=== PATIENT | male | born 1940 | race Caucasian/White ===

== ENCOUNTER → 2021-07-26 10:18 | Outpatient (CLI) | payer MEDICARE, SELFPAY ==
[2021-07-26 11:56] LABS: Add Manual Diff / Slide Review NO; Basophils Absolute Auto 100 /uL (0-100); Basophils Percent Auto 0.9 % (0-2); Eosinophils Absolute Auto 300 /uL (0-450); Eosinophils Percent Auto 4.4 % (2-4); Hematocrit 43.6 % (41-53); Hemoglobin 14.4 g/dL (13.5-17.5); Lymphocytes Absolute Auto 1500 /uL (1100-4500); Lymphocytes Percent Auto 24.4 % (25-40); Mean Corpuscular Hemoglobin 25.6 PG (26-34); Mean Corpuscular Volume 77.7 fL (80-100); Monocytes Absolute Auto 600 /uL (0-900); Monocytes Percent Auto 9.4 % (3-14); Neutrophils Absolute Auto 3800 /uL (1500-7000); Neutrophils Percent Auto 60.9 % (50-75); Platelet Count 229 X10^3/uL (150-400); Red Blood Cell Count 5.61 X10^6/uL (4.5-5.9); Red Cell Distribution Width 16.5 % (11.6-14.8); White Blood Cell Count 6.2 X10^3/uL (4.5-11.0)
[2021-07-26 12:09] LABS: Hemoglobin A1C% w Est Avg Glu 5.2 % (4.0-6.0)
[2021-07-26 12:27] LABS: Alanine Aminotransferase 8 IU/L (<50); Albumin Globulin Ratio 1.6 (1.0-2.8); Alkaline Phosphatase 68 U/L (38-126); Aspartate Aminotransferase 23 IU/L (17-59); BUN Creatinine Ratio 18.5 (6-22); Bilirubin Total 0.7 mg/dL (0.2-1.3); Blood Urea Nitrogen 22 mg/dL (9-20); Carbon Dioxide 30 mmol/L (22-32); Chloride 105 mmol/L (98-107); Cholesterol 165 mg/dL (140-199); Estimated Glomerular Filt Rate > 60 mL/min (>60); Globulin 2.5 g/dL (1.7-4.1); Glucose 90 mg/dL (80-110); HDL Cholesterol 60 mg/dL (40-60); HEMOLYSIS < 15 (0-50); LDL Cholesterol Calculated 94 mg/dL (<100); Potassium 4.5 mmol/L (3.4-5.1); Sodium 140 mmol/L (137-145); Total Protein 6.5 g/dL (6.3-8.2); Triglycerides 53 mg/dL (35-150)
[2021-07-26 12:56] LABS: Prostate Specific Antigen Scrn 7.35 ng/mL (0.1-4.0)
== END ==
PROVIDERS: PCP Family Medicine; Referring Provider Family Medicine; Visit Provider Family Medicine
DX: I10 Essential (primary) hypertension (principal); E78.2 Mixed hyperlipidemia; Z12.5 Encounter for screening for malignant neoplasm of prostate; I49.1 Atrial premature depolarization; K21.9 Gastro-esophageal reflux disease without esophagitis; N40.0 Benign prostatic hyperplasia without lower urinary tract symptoms; R97.20 Elevated prostate specific antigen [PSA]
CPT/HCPCS: 36415; 80053; 80061; 83036; 85025; G0103

== ENCOUNTER → 2021-09-20 09:10 | Outpatient (CLI) | payer MEDICARE, SELFPAY ==
[2021-09-20 12:43] LABS: Prostate Specific Antigen 4.29 ng/mL (0.10-4.00)
== END ==
PROVIDERS: PCP Family Medicine; Referring Provider Specialist; Visit Provider Specialist
DX: R97.20 Elevated prostate specific antigen [PSA] (principal)
CPT/HCPCS: 36415; 84153

== ENCOUNTER → 2021-11-07 09:06 | Outpatient (CLI) | payer MEDICARE, SELFPAY ==
--- NOTE | 2021-11-07 09:18 | DI.MRI.S_ITS ---
PROCEDURE: MR PELIS WO/W CON INDICATIONS: Prostate CA TECHNIQUE: Coronal HASTE, axial T1 FSE with fat saturation, 3-plane nonbreath-hold T2 FSE. After the administration of contrast, dynamic axial, delayed axial and coronal VIBE or 2-D FLASH with fat saturation through the pelvis. Optional diffusion weighted imaging and ADC may be performed. COMPARISON: None. FINDINGS: Image quality: Diffusion weighted and dynamic contrast enhanced images are diagnostic. Prostate: 5.2 by 5.5 by 4.5 centimeters for a volume of 67 cc Pattern of signal in the transitional zone is compatible with multiple BPH nodules. There is also suspected sequelae of prostatitis in the peripheral zones diffusely. Some BPH nodules appear extruded impinging on the peripheral zone, for example at the right base. PI-RADS 2. Genitourinary system: Bladder wall thickness is normal. Distal ureters are non distended. Bowel and peritoneum: No pathologic free pelvic fluid. Inferior colon and small bowel loops are normal in caliber. Nodes and vessels: There are prominent indeterminate pelvic lymph nodes, none enlarged by size criteria. Soft tissues: Bilateral fat containing inguinal hernias. Bones: Marrow demonstrates normal overall signal, without lesions to suggest metastases. IMPRESSION: No PI-RADS 3, 4, or 5 lesion identified. Overall classification is PI-RADS 2, for suspected sequelae of prostatitis and BPH. Dictated by: Smith Salvador M.D. on 11/07/2021 at 11:49 Approved by: Smith Salvador M.D. on 11/07/2021 at 11:58
[2021-11-08 11:36] LABS: PSA Free % 20.6 % (.); PSA, Total 4.8 ng/mL (0.0-4.0)
== END ==
PROVIDERS: PCP Family Medicine; Referring Provider Specialist; Visit Provider Specialist
DX: D40.0 Neoplasm of uncertain behavior of prostate (principal); R97.20 Elevated prostate specific antigen [PSA]
CPT/HCPCS: 36415; 72197; 84153; 84154

== ENCOUNTER → 2022-02-06 16:14 | Outpatient (CLI) | payer MEDICARE, SELFPAY ==
[2022-02-06 17:20] LABS: Influenza A - CEPHEID Flu A NEGATIVE (NEGATIVE); Influenza B - CEPHEID Flu B NEGATIVE (NEGATIVE); Respiratory Syncytial Virus Negative (Negative)
[2022-02-06 17:35] LABS: COVID-19 CEPHEID 4-PLEX PCR Negative (Negative)
== END ==
PROVIDERS: PCP Family Medicine; Visit Provider Family Medicine
DX: R05.1 Acute cough (principal); R06.2 Wheezing
CPT/HCPCS: 0241U

== ENCOUNTER → 2022-02-19 12:31 | Outpatient (CLI) | payer MEDICARE, SELFPAY ==
--- NOTE | 2022-02-19 12:33 | DI.RAD.S_ITS ---
PROCEDURE: XR SACRUM COCCYX MIN 2V INDICATIONS: right leg pain TECHNIQUE: 3 views of the sacrum and coccyx acquired. COMPARISON: None. FINDINGS: Bones: No fractures or dislocations. No suspicious bony lesions. Soft tissues: Visualized bowel gas pattern is normal. No suspicious soft tissue densities. Surgical clips in the right lower quadrant. IMPRESSION: No fracture. No osseous lesion. If symptoms and/or clinical suspicion for pathology persists, further assessment with repeat radiographs (7-10 days) or advanced imaging (e.g. CT, MRI or bone scan) should be considered. Dictated by: Donya Mathews MD, PhD on 02/19/2022 at 13:40 Approved by: Donya Mathews MD, PhD on 02/19/2022 at 13:43
--- NOTE | 2022-02-19 12:33 | DI.RAD.S_ITS ---
PROCEDURE: XR LUMBAR SPINE 2-3V INDICATIONS: right leg pain TECHNIQUE: 3 views of the lumbar spine were acquired. COMPARISON: None. FINDINGS: Bones: 5 [id number] vertebrae are present. There is normal bony alignment. No vertebral body compression fractures. No suspicious bony lesions. Mild to moderate degenerative disc changes noted throughout the lumbar spine. Moderate L4-L5 and L5-S1 facet hypertrophy. Mild L1-L2, L2-L3 and L3-L4 facet hypertrophy. Soft tissues: Overlying bowel gas pattern is normal. No suspicious soft tissue calcifications. IMPRESSION: 1. Multilevel degenerative disc disease. 2. Multilevel facet arthropathy. 3. No fracture. No acute osseous lesion. If symptoms and/or clinical suspicion for pathology persists, evaluation with MRI should be considered for further assessment. Dictated by: Donya Mathews MD, PhD on 02/19/2022 at 13:47 Approved by: Donya Mathews MD, PhD on 02/19/2022 at 13:47
--- NOTE | 2022-02-19 12:33 | DI.RAD.S_ITS ---
PROCEDURE: XR HIP W PEL IF DONE RT 2V INDICATIONS: right leg pain TECHNIQUE: 2 view(s) of the hip acquired. COMPARISON: None. FINDINGS: Bones: Patient is status post right hip arthroplasty, with hardware components in expected positions. The hip joint appears congruent. The visualized bony structures appear intact. Mild osseous hypertrophy noted in the right hip compatible with osteoarthritis. Soft tissues: Overlying postoperative changes are noted. No suspicious soft tissue densities. IMPRESSION: Mild right hip osteoarthritis. No fracture. No acute osseous lesion. If symptoms and/or clinical suspicion for pathology persists, further assessment with repeat radiographs (7-10 days) or advanced imaging (e.g. CT, MRI or bone scan) should be considered. Dictated by: Donya Mathews MD, PhD on 02/19/2022 at 13:45 Approved by: Donya Mathews MD, PhD on 02/19/2022 at 13:46
== END ==
PROVIDERS: PCP Family Medicine; Referring Provider Physician Assistant Medical; Visit Provider Physician Assistant Medical
DX: M16.11 Unilateral primary osteoarthritis, right hip (principal); M47.816 Spondylosis without myelopathy or radiculopathy, lumbar region; M47.817 Spondylosis without myelopathy or radiculopathy, lumbosacral region; M51.36 Other intervertebral disc degeneration, lumbar region; M51.37 Other intervertebral disc degeneration, lumbosacral region; M54.50 Low back pain, unspecified; M79.604 Pain in right leg
CPT/HCPCS: 72100; 72220; 73502

== ENCOUNTER → 2022-02-20 12:49 | Outpatient (CLI) | payer MEDICARE, SELFPAY ==
[2022-02-20 13:36] LABS: Appearance Urine UA CLEAR; Bilirubin Urine UA NEGATIVE (NEGATIVE); Color Urine UA YELLOW; Glucose Urine UA NEGATIVE (Negative); Ketones Urine UA 1+ (NEGATIVE); Leukocyte Esterase Urine UA NEGATIVE (NEGATIVE); Nitrite Urine UA NEGATIVE (Negative); Occult Blood Urine UA 1+ (Negative); Protein Urine UA TRACE (Negative); Specific Gravity Urine UA >=1.030 (1.000-1.035); Urobilinogen Urine UA 0.2 E.U./dL (0.2)
[2022-02-20 13:45] LABS: Bacteria Urine None Seen; Culture Indicated Urine Cult Not Indicated; Mucus Urine 2+ (Negative); RBC Urine 1-5/HPF (0-5/HPF); Squamous Epithelial Cell Urine 0-1 /HPF (0-5/HPF); WBC Urine 0-1/HPF (0-5/HPF)
== END ==
PROVIDERS: PCP Family Medicine; Visit Provider Specialist
DX: N13.8 Other obstructive and reflux uropathy (principal); N40.1 Benign prostatic hyperplasia with lower urinary tract symptoms
CPT/HCPCS: 81001

== ENCOUNTER → 2022-02-21 18:16 | Outpatient (CLI) | payer MEDICARE, SELFPAY ==
--- NOTE | 2022-02-21 18:23 | DI.MRI.S_ITS ---
PROCEDURE: MR PELVIS WO CON INDICATIONS: Had xrays 02/19/22, recommended MRI TECHNIQUE: Noncontrast coronal and axial T1 spin echo and STIR through the bony pelvis. COMPARISON: [facility], MR, MR PELVIS WO/W CON, 11/07/2021, 10:32. [facility], CR, XR HIP W PEL IF DONE RT 2V, 02/19/2022, 12:34. FINDINGS: Image quality: Excellent. Bones: Bone marrow of the pelvic ring, sacrum, and proximal femurs show normal signal throughout. No intraosseous lesions or fractures identified. There is disc desiccation, degenerative endplate changes, and facet hypertrophy in the lower lumbar spine. Mild degenerative changes are seen in the hips bilaterally with lateral acetabular spurring. Tendons: There is distal gluteus medius and minimus tendinosis bilaterally with possible superimposed low-grade partial tearing at the left gluteus minimus insertion. Proximal iliotibial bands are intact. Distal iliopsoas tendons appear to be intact. There is mild edema along the deep margins of the iliacus muscles bilaterally that may indicate low-grade strains. Bilateral proximal hamstring tendinosis is seen with superimposed partial tearing. Mild soft tissue edema is seen adjacent to the right hamstring tendon origin. The direct and indirect heads of the rectus femoris muscles appear to be intact. Soft tissues: Visualized muscles demonstrate normal bulk and internal signal. Small bilateral hip effusions. Small bilateral fat containing inguinal hernias. Prostate is enlarged, but not well evaluated on the current exam. A few diverticula are seen in the colon. IMPRESSION: 1. Tendinosis and partial tearing of the proximal hamstring tendons at their origins bilaterally. Mild soft tissue edema is seen surrounding the right proximal hamstring tendons that may indicate a more recent injury. 2. Low-grade partial tearing of the left distal gluteus minimus tendon superimposed on gluteus medius and minimus tendinosis. Trace overlying trochanteric bursal effusion. Contralateral right gluteus medius and minimus tendinosis is also seen. 3. Soft tissue edema within the bilateral iliacus muscles is suspicious for low-grade muscle strains. 4. Mild bilateral hip osteoarthrosis. Degenerative changes are seen in the lumbar spine. 5. Prostatomegaly. Approved by: Everett Lozoya M.D. on 02/22/2022 at 9:46
--- NOTE | 2022-02-21 18:23 | DI.MRI.S_ITS ---
PROCEDURE: MR LUMBAR SPINE WO CON INDICATIONS: Had xrays 02/19/22, recommended MRI TECHNIQUE: Noncontrast sagittal T1 spin echo and T2 fast echo, sagittal STIR, and T2 fast spin echo through the lumbar spine. In cases with scoliosis, additional coronal T2 fast spin echo may be performed. COMPARISON: None. FINDINGS: Image quality: Excellent. Alignment and Curvature: Degenerative anterolisthesis of L4 on L5 measuring 2 mm. Otherwise normal lumbar vertebral body height and alignment. Bone Marrow: No suspicious focal marrow signal abnormality or bone marrow edema. Spinal Cord: Normal position and appearance of the conus. Regional Soft Tissues: Prevertebral and paraspinous soft tissues are normal. T12-L1: No spinal canal or neural foraminal stenosis. L1-L2: No spinal canal or neural foraminal stenosis. L2-L3: Disc bulge flattens the ventral thecal sac without mass effect upon the traversing L3 nerve roots. No neural foraminal narrowing. Mild facet hypertrophy. L3-L4: Mild spinal canal stenosis due to diffuse disc bulge and a superimposed broad-based posterior disc protrusion along with affects from bulky facet hypertrophy and buckling ligamentum flavum. Mild effacement of the thecal sac and mild crowding of the traversing nerve roots. Foraminal components of the disc bulge and facet hypertrophy combine to produce moderate right and mild left neural foraminal narrowing. L4-L5: Moderate spinal canal stenosis due to diffuse disc bulge and a superimposed broad-based posterior disc protrusion along with affects from bulky facet hypertrophy and buckling of the ligamentum flavum. Near complete effacement of CSF in the thecal sac with crowding of the traversing nerve roots. Foraminal components of the disc bulge and facet hypertrophy combine to produce moderate bilateral neural foraminal stenosis. L5-S1: Mild spinal canal stenosis. Disc bulge mildly displaces the descending S1 nerve roots. Mild bilateral neural foraminal narrowing due to foraminal components of the disc bulge. IMPRESSION: Multilevel multifactorial degenerative changes as detailed above. Moderate spinal canal stenosis at L4-L5 with varying degrees of neural foraminal stenosis up to moderate. Dictated by: Nnamdi Nolasco M.D. on 02/22/2022 at 9:05 Approved by: Nnamdi Nolasco M.D. on 02/22/2022 at 9:25
== END ==
PROVIDERS: PCP Family Medicine; Visit Provider Family Medicine
DX: S39.013A Strain of muscle, fascia and tendon of pelvis, initial encounter (principal); M16.0 Bilateral primary osteoarthritis of hip; N40.1 Benign prostatic hyperplasia with lower urinary tract symptoms; N13.8 Other obstructive and reflux uropathy; M79.604 Pain in right leg; M54.50 Low back pain, unspecified; R60.0 Localized edema
CPT/HCPCS: 72148; 72195

== ENCOUNTER → 2022-04-09 13:05 | Outpatient (CLI) | payer MEDICARE, SELFPAY ==
[2022-04-09 13:27] LABS: Add Manual Diff / Slide Review NO; Basophils Absolute Auto 100 /uL (0-100); Eosinophils Absolute Auto 400 /uL (0-450); Eosinophils Percent Auto 4.4 % (2-4); Hematocrit 41.6 % (41-53); Hemoglobin 13.7 g/dL (13.5-17.5); Lymphocytes Absolute Auto 1700 /uL (1100-4500); Lymphocytes Percent Auto 21.2 % (25-40); Mean Corpuscular Hemoglobin 25.2 PG (26-34); Mean Corpuscular Volume 76.3 fL (80-100); Monocytes Absolute Auto 700 /uL (0-900); Monocytes Percent Auto 8.8 % (3-14); Neutrophils Absolute Auto 5300 /uL (1500-7000); Neutrophils Percent Auto 64.6 % (50-75); Platelet Count 232 X10^3/uL (150-400); Red Blood Cell Count 5.45 X10^6/uL (4.5-5.9); Red Cell Distribution Width 16.2 % (11.6-14.8); White Blood Cell Count 8.2 X10^3/uL (4.5-11.0)
[2022-04-09 13:43] LABS: Appearance Urine UA CLEAR; Bilirubin Urine UA NEGATIVE (NEGATIVE); Color Urine UA YELLOW; Glucose Urine UA NEGATIVE (Negative); Ketones Urine UA NEGATIVE (NEGATIVE); Leukocyte Esterase Urine UA NEGATIVE (NEGATIVE); Nitrite Urine UA NEGATIVE (Negative); Occult Blood Urine UA TRACE-INTACT (Negative); Protein Urine UA NEGATIVE (Negative); Specific Gravity Urine UA 1.025 (1.000-1.035); Urobilinogen Urine UA 0.2 E.U./dL (0.2)
[2022-04-09 13:52] LABS: Erythrocyte Sedimentation Rate 3 MM/HR (0-15)
[2022-04-09 13:56] LABS: Bacteria Urine None Seen; Culture Indicated Urine Cult Not Indicated; Mucus Urine 2+ (Negative); RBC Urine None Seen (0-5/HPF); Squamous Epithelial Cell Urine 0-1 /HPF (0-5/HPF); WBC Urine 1-5/HPF (0-5/HPF)
[2022-04-09 14:03] LABS: Alanine Aminotransferase 11 IU/L (<50); Albumin 3.9 g/dL (3.5-5.0); Albumin Globulin Ratio 1.3 (1.0-2.8); Alkaline Phosphatase 66 U/L (38-126); Aspartate Aminotransferase 18 IU/L (17-59); BUN Creatinine Ratio 17.3 (6-22); Bilirubin Total 0.7 mg/dL (0.2-1.3); Blood Urea Nitrogen 18 mg/dL (9-20); C-Reactive Protein Quant 1.3 mg/dL (<1.0); Carbon Dioxide 28 mmol/L (22-32); Chloride 103 mmol/L (98-107); Creatine Kinase 30 U/L (55-170); Estimated Glomerular Filt Rate > 60 mL/min (>60); Glucose 112 mg/dL (80-110); HEMOLYSIS < 15 (0-50); Potassium 3.9 mmol/L (3.4-5.1); Sodium 140 mmol/L (137-145); Total Protein 6.9 g/dL (6.3-8.2)
[2022-04-09 14:29] LABS: TSH w/ Reflex to FT4 2.73 uIU/mL (0.47-4.68)
== END ==
PROVIDERS: PCP Family Medicine; Referring Provider Nurse Practitioner Family; Visit Provider Nurse Practitioner Family
DX: M79.10 Myalgia, unspecified site (principal); Z00.00 Encounter for general adult medical examination without abnormal findings
CPT/HCPCS: 36415; 80053; 81001; 82550; 84443; 85025; 85651; 86140

== ENCOUNTER → 2022-04-30 09:35 | Outpatient (CLI) | payer MEDICARE, SELFPAY ==
[2022-04-30 11:00] LABS: Prostate Specific Antigen 3.16 ng/mL (0.10-4.00)
== END ==
PROVIDERS: PCP Family Medicine; Referring Provider Specialist; Visit Provider Specialist
DX: N40.1 Benign prostatic hyperplasia with lower urinary tract symptoms (principal); N13.8 Other obstructive and reflux uropathy
CPT/HCPCS: 36415; 84153

== ENCOUNTER → 2022-05-01 09:39 | Outpatient (CLI) | payer MEDICARE, SELFPAY ==
--- NOTE | 2022-05-01 09:43 | DI.RAD.S_ITS ---
PROCEDURE: XR SHOULDER LT MIN 2V INDICATIONS: Left shoulder pain TECHNIQUE: 3 views of the shoulder were acquired. COMPARISON: None. FINDINGS: Bones: No fractures or dislocations. No suspicious bony lesions. Visualized ribs appear intact. Soft tissues: No suspicious soft tissue calcifications. IMPRESSION: No evidence acute bony abnormality of the right shoulder. If clinical suspicion and/or symptoms persist, further assessment with repeat plain films, or advanced imaging (e.g., CT, MRI, or bone scan) may be helpful for further assessment. Dictated by: Chris Greenberg M.D. on 05/01/2022 at 10:53 Approved by: Chris Greenberg M.D. on 05/01/2022 at 10:53
== END ==
PROVIDERS: PCP Family Medicine; Referring Provider Family Medicine; Visit Provider Family Medicine
DX: M25.512 Pain in left shoulder (principal); N40.1 Benign prostatic hyperplasia with lower urinary tract symptoms; N13.8 Other obstructive and reflux uropathy
CPT/HCPCS: 73030

== ENCOUNTER → 2022-05-27 16:07 | Outpatient (CLI) | payer MEDICARE, SELFPAY ==
[2022-05-27 16:59] LABS: Influenza A - CEPHEID Flu A NEGATIVE (NEGATIVE); Influenza B - CEPHEID Flu B NEGATIVE (NEGATIVE); Respiratory Syncytial Virus Negative (Negative)
[2022-05-27 17:00] LABS: COVID-19 CEPHEID 4-PLEX PCR Negative (Negative)
== END ==
PROVIDERS: Family Provider Family Medicine; PCP Family Medicine; Visit Provider Nurse Practitioner Family
DX: J02.9 Acute pharyngitis, unspecified (principal); R05.1 Acute cough
CPT/HCPCS: 0241U; 87070

== ENCOUNTER → 2022-05-27 16:24 | Outpatient (CLI) | payer MEDICARE, SELFPAY ==
--- NOTE | 2022-05-27 16:26 | DI.RAD.S_ITS ---
PROCEDURE: XR CHEST 2V INDICATIONS: coughed up a hard thing TECHNIQUE: 2 views of the chest were acquired. COMPARISON: , , CHEST 2 VIEW, 02/03/2008, 7:57. FINDINGS: Surgical changes and devices: Wireless cardiac device projects over the left mid chest. Surgical clips in the gallbladder fossa. Lungs and pleura: Minor linear consolidation in the right middle lobe or lingular region. No alveolar consolidations or pleural effusions. Mediastinum: Mediastinal contours are normal. Heart size is normal. Bones and chest wall: No suspicious bony abnormalities. Soft tissues appear unremarkable. IMPRESSION: 1. Minor right middle lobe and/or lingular atelectatic changes. 2. No radiographic evidence of significant airspace disease. Dictated by: Klaudia Graves M.D. on 05/28/2022 at 0:19 Approved by: Klaudia Graves M.D. on 05/28/2022 at 0:21
[2022-05-27 16:38] LABS: Hematocrit 43.8 % (41-53); Hemoglobin 14.3 g/dL (13.5-17.5); Mean Corpuscular HGB Conc 32.8 % (30-36); Mean Corpuscular Volume 76.4 fL (80-100); Platelet Count 238 X10^3/uL (150-400); Red Blood Cell Count 5.73 X10^6/uL (4.5-5.9); Red Cell Distribution Width 16.1 % (11.6-14.8); White Blood Cell Count 7.6 X10^3/uL (4.5-11.0)
== END ==
PROVIDERS: Family Provider Family Medicine; PCP Family Medicine; Referring Provider Nurse Practitioner Family; Visit Provider Nurse Practitioner Family
DX: J02.9 Acute pharyngitis, unspecified (principal); R05.1 Acute cough
CPT/HCPCS: 0241U; 36415; 71046; 85027; 87070

== ENCOUNTER → 2022-11-14 07:18 | Outpatient (CLI) | payer MEDICARE, SELFPAY ==
[2022-11-14 09:13] LABS: Prostate Specific Antigen 4.36 ng/mL (0.10-4.00)
== END ==
PROVIDERS: Family Provider Family Medicine; PCP Family Medicine; Referring Provider Specialist; Visit Provider Specialist
DX: R97.20 Elevated prostate specific antigen [PSA] (principal)
CPT/HCPCS: 36415; 84153

== ENCOUNTER → 2023-01-14 13:17 | Outpatient (CLI) | payer MEDICARE, SELFPAY ==
[2023-01-14 14:24] LABS: Alanine Aminotransferase 12 IU/L (<50); Albumin 3.9 g/dL (3.5-5.0); Albumin Globulin Ratio 1.6 (1.0-2.8); Alkaline Phosphatase 60 U/L (38-126); Aspartate Aminotransferase 24 IU/L (17-59); BUN Creatinine Ratio 18.1 (6-22); Bilirubin Total 0.5 mg/dL (0.2-1.3); Blood Urea Nitrogen 19 mg/dL (9-20); Calcium 9.6 mg/dL (8.4-10.2); Carbon Dioxide 29 mmol/L (22-32); Chloride 106 mmol/L (98-107); Estimated Glomerular Filt Rate > 60 mL/min (>60); Globulin 2.4 g/dL (1.7-4.1); Glucose 80 mg/dL (80-110); HEMOLYSIS < 15 (0-50); Potassium 4.4 mmol/L (3.4-5.1); Sodium 141 mmol/L (137-145); Total Protein 6.3 g/dL (6.3-8.2)
[2023-01-14 14:32] LABS: NT-proBNP (BNP-Adult 18+) 277 pg/mL (<450)
== END ==
PROVIDERS: Family Provider Family Medicine; PCP Family Medicine; Referring Provider Physician Assistant; Visit Provider Physician Assistant
DX: M25.472 Effusion, left ankle (principal); M25.471 Effusion, right ankle
CPT/HCPCS: 36415; 80053; 83880

== ENCOUNTER → 2023-01-30 08:55 | Outpatient (CLI) | payer MEDICARE, SELFPAY ==
--- NOTE | 2023-01-30 08:57 | DI.ECHO.S_ITS ---
[place] [facility]---------+ [facility] +---------+ : : [address] : : : : [id number] : : : : Phone: [phone]+ Echocardiogram Report + + :Name: HOLLY ABURTO Study Date: 01/30/2023 Height: 67 in : :[facility] ReadingLocation: Weight: 210 lb : : Gender: Male BSA: 2.1 m2 : :: 1940 Age: 82 yrs BP: 156/86 mmHg: :Reason For Study: Bilateral Ankle Edema : :Ordering Physician: GREG, : :REDD Performed By: Cheri Ott : :Referring: REDD GARZA : + + Interpretation Summary 1) Normal left ventricular thickness, size, wall motion, and systolic function (EF 60-65%). 2) Normal right ventricular size and function. 3) No significant valvular abnormalities. 4) No prior Echo available for comparison. Procedure: A two-dimensional transthoracic echocardiogram with color flow and Doppler was performed. The study quality was technically adequate. There is no prior echocardiogram noted for this patient. The patient was in a bradycardic rhythm during the exam. Left Ventricle: The left ventricle is normal in size and wall thickness. The ejection fraction is estimated to be 60-65%. Left ventricular systolic function appears normal without focal wall motion abnormalities. Diastolic parameters suggest a relaxation abnormality of the left ventricle, consistent with probable normal filling pressures. Right Ventricle: The right ventricle is normal in size and function. Atria: The left atrial size is normal. Right atrial size is normal. There is no Doppler evidence for an interatrial shunt. Mitral Valve: The mitral valve is normal. There is mild mitral annular calcification. There is no mitral valve stenosis. There is trace mitral regurgitation. Aortic Valve: The aortic valve is not well visualized. There is no aortic valve stenosis. There is trace aortic regurgitation. Tricuspid Valve: The tricuspid valve is normal. There is no tricuspid stenosis. There is trace tricuspid regurgitation. The right ventricular systolic pressure is estimated to be at least 25 mmHg based on an estimated right atrial pressure of 3 mm Hg. Pulmonic Valve: The pulmonic valve is not well visualized. There is no pulmonic valvular stenosis. There is no pulmonic valvular regurgitation. Great Vessels: The aortic root is normal size. The ascending aorta could not be visualized. The pulmonary is not well visualized. The IVC is of normal diameter and collapses greater than 50% with a sniff. This suggests a low right atrial pressure of 3 mm Hg. Pericardium/ Pleura Physiological pericardial effusion present. There is no pleural effusion. MMode/2D Measurements & Calculations LVIDd: 4.8 cm LVOT diam: 1.9 cm LVIDs: 2.9 cm Ao root diam: 3.3 cm FS: 39.6 % IVSd: 0.90 cm LVPWd: 0.80 cm LV rodriguez. diameter/BSA (cm/m^2): 2.3 LV sys. diameter/BSA (cm/m^2): 1.4 LA A2 area: 19.8 cm2 RA long axis: 5.3 cm LA A4 area: 14.8 cm2 RA area: 17.2 cm2 LA length (vol): 5.4 cm RA vol: 47.1 ml LA vol: 46.5 ml RA : 22.8 ml/m2 LA vol index: 22.5 ml/m2 RVD1 (basal): 3.9 cm LVLs ap4: 6.2 cm LVLd ap2: 7.2 cm TAPSE_phl: 2.6 cm LVLs ap2: 6.3 cm Doppler Measurements & Calculations Ao V2 max: 129.5 cm/sec LVOT Max Yunier: 96.5 cm/sec Ao V2 mean: 89.9 cm/sec LV V1 max P.7 mmHg Ao max P.0 mmHg LV V1 VTI: 23.1 cm Ao mean P.0 mmHg ILIR(I,D): 1.9 cm2 Ao V2 VTI: 32.6 cm ILIR(V,D): 2.0 cm2 sev ratio: 0.71 ILIR indexed to BSA (cm^2/m^2): 0.94 MV E max yunier: 87.1 cm/sec TR max yunier: 236.6 cm/sec MV A max yunier: 79.5 cm/sec TR max P.4 mmHg MV E/A: 1.1 Med Peak E' Yunier: 9.9 cm/sec E/E' med: 8.8 Lat Peak E' Yunier: 12.0 cm/sec E/E' lat: 7.3 E/e' average: 8.0 MV dec time: 0.24 sec SV(LVOT): 63.2 ml AV VR_phl: 0.74 ILIR(VTI)/BSA_phl: 0.87 Reading Physician:12:31 PM
== END ==
PROVIDERS: Family Provider Family Medicine; PCP Family Medicine; Referring Provider Physician Assistant; Visit Provider Physician Assistant
DX: I34.81 Nonrheumatic mitral (valve) annulus calcification (principal); M25.471 Effusion, right ankle; M25.472 Effusion, left ankle
CPT/HCPCS: 93306

== ENCOUNTER → 2024-01-30 13:21 | Outpatient (CLI) | payer MEDICARE, SELFPAY ==
[2024-01-30 15:35] LABS: Prostate Specific Antigen 8.23 ng/mL (0.10-4.00)
== END ==
LOC: LAB 13:23
PROVIDERS: Family Provider Family Medicine; PCP Family Medicine; Referring Provider Nurse Practitioner; Visit Provider Nurse Practitioner
DX: R97.20 Elevated prostate specific antigen [PSA] (principal)
CPT/HCPCS: 36415; 84153

== ENCOUNTER → 2024-02-17 15:51 | Outpatient (ROUT) | payer MEDICARE, SELFPAY | PROVIDERS: Family Provider Family Medicine; PCP Family Medicine | DX: R21 Rash and other nonspecific skin eruption (principal); L29.89 Other pruritus; L85.3 Xerosis cutis | CPT/HCPCS: 87070; 87075; 87102; 87205 ==

== ENCOUNTER → 2024-04-30 13:20 | Outpatient (CLI) | payer MEDICARE, SELFPAY ==
[2024-04-30 14:17] LABS: Add Manual Diff / Slide Review NO; Basophils Absolute Auto 100 /uL (0-100); Basophils Percent Auto 0.8 % (0-2); Eosinophils Absolute Auto 600 /uL (0-450); Eosinophils Percent Auto 6.8 % (2-4); Hemoglobin 14.3 g/dL (13.5-17.5); Lymphocytes Absolute Auto 1900 /uL (1100-4500); Lymphocytes Percent Auto 20.8 % (25-40); Mean Corpuscular HGB Conc 32.5 % (30-36); Mean Corpuscular Hemoglobin 25.6 PG (26-34); Mean Corpuscular Volume 78.6 fL (80-100); Monocytes Absolute Auto 800 /uL (0-900); Monocytes Percent Auto 8.7 % (3-14); Neutrophils Absolute Auto 5800 /uL (1500-7000); Neutrophils Percent Auto 62.9 % (50-75); Platelet Count 263 X10^3/uL (150-400); Red Blood Cell Count 5.59 X10^6/uL (4.5-5.9); Red Cell Distribution Width 16.1 % (11.6-14.8); White Blood Cell Count 9.1 X10^3/uL (4.5-11.0)
[2024-04-30 14:32] LABS: Alanine Aminotransferase 11 IU/L (<50); Albumin 3.8 g/dL (3.5-5.0); Albumin Globulin Ratio 1.5 (1.0-2.8); Alkaline Phosphatase 83 U/L (38-126); Aspartate Aminotransferase 25 IU/L (17-59); BUN Creatinine Ratio 17.6 (6-22); Bilirubin Total 0.6 mg/dL (0.2-1.3); Blood Urea Nitrogen 19 mg/dL (9-20); Calcium 9.2 mg/dL (8.4-10.2); Carbon Dioxide 27 mmol/L (22-32); Chloride 108 mmol/L (98-107); Estimated Glomerular Filt Rate > 60 mL/min (>60); Globulin 2.6 g/dL (1.7-4.1); Glucose 81 mg/dL (80-110); HEMOLYSIS < 15 (0-50); Potassium 4.5 mmol/L (3.4-5.1); Sodium 141 mmol/L (137-145); Total Protein 6.4 g/dL (6.3-8.2)
[2024-04-30 15:03] LABS: Prostate Specific Antigen Scrn 19.8 ng/mL (0.1-4.0)
== END ==
PROVIDERS: Family Provider Family Medicine; PCP Family Medicine; Referring Provider Family Medicine; Visit Provider Family Medicine
DX: R97.20 Elevated prostate specific antigen [PSA] (principal); N13.8 Other obstructive and reflux uropathy; Z12.5 Encounter for screening for malignant neoplasm of prostate; N40.1 Benign prostatic hyperplasia with lower urinary tract symptoms; E78.2 Mixed hyperlipidemia
CPT/HCPCS: 36415; 80053; 85025; G0103

== ENCOUNTER → 2024-05-25 11:47 | Outpatient (CLI) | payer MEDICARE, SELFPAY ==
--- NOTE | 2024-05-25 11:48 | DI.RAD.S_ITS ---
PROCEDURE: XR CERVICAL SPINE 2V OR 3V INDICATIONS: chronic neck pain x 1 mo TECHNIQUE: Three views) of the cervical spine were acquired. COMPARISON: None. FINDINGS: Cervical spine curvature and alignment: Normal. Bones: There are no osseous abnormalities. Disc spaces: Moderate C5-6 and C6-7 degenerative disc disease noted. There is mild degenerative facet disease C3-4 through C7-T1 Soft tissues: No soft tissue swelling, calcification or mass. IMPRESSION: Degeneration. Dictated by: Jayesh Jaramillo M.D. on 05/26/2024 at 10:46 Approved by: Jayesh Jaramillo M.D. on 05/26/2024 at 10:47
== END ==
PROVIDERS: Family Provider Family Medicine; PCP Family Medicine; Referring Provider Physician Assistant; Visit Provider Physician Assistant
DX: M50.322 Other cervical disc degeneration at C5-C6 level (principal); M47.812 Spondylosis without myelopathy or radiculopathy, cervical region; M47.813 Spondylosis without myelopathy or radiculopathy, cervicothoracic region
CPT/HCPCS: 72040

== ENCOUNTER 2024-07-01 14:30 | Outpatient (RCR) | payer MEDICARE, SELFPAY ==
--- NOTE | 2024-06-17 16:08 | PT.OIE ---
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 Chronic sinusitis Depression History of cardiac monitoring History of gastroesophageal reflux (GERD) Hx of chest pain Hx of coronary angiogram Hx of hypercholesterolemia Hx of neurological disease Insomnia Left shoulder pain Low back pain Medicare annual wellness visit, subsequent Mixed action and resting tremor Past Surgical History (Last Reviewed 06/17/24 @ 11:43 by Carlton Monique DO) Hx of appendectomy Hx of circumcision Hx of vasectomy Status post cholecystectomy Status post colonoscopy Status post tonsillectomy and adenoidectomy Visit Care Team Role Provider Type Carlton Monique DO Family Provider Physician Primary Care Provider Specialty: Family Practice Address: [address] [place] [address] Email: [email or web address] Danya Vargas PA-C Attending Provider Advanced 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 Helper Referring Provider Specialty: Medical Wound Care Address: [address] [place] [address], [facility] Email: [email or web address] Physical Therapy Initial Evaluation PT-OP-A Visit Information Start: 06/16/24 16:01 Freq: Status: Active Protocol: Document 06/17/24 15:31 KW (Rec: 06/17/24 16:08 KW [id number]) Out-Patient Physical Therapy Visit Information Visit Information Visit Type Initial Evaluation Visit Note 84 yo male presents to PT with onset of cervical spine pain after attending an exercise class. X-rays showed degenerative changes. Pain with turning head left/right. No numbness, tingling or noticeable weakness. no issues sleeping. Essential tremor present. added stress in his lift this last year having to move his 79 yo into memory care. Visit Start Time 14:30 Visit Stop Time 15:15 Visit Number 1 Evaluation Information Evaluation Date 06/17/24 Precautions Precautions none PT-OP-B Current Condition Start: 06/16/24 16:01 Freq: Status: Active Protocol: Document 06/17/24 15:31 KW (Rec: 06/17/24 16:08 KW [id number]) Current Condition History of Current Condition Onset Date approx 2 weeks Current Complaints pain and stiffness with rotation of head, especially driving Prior Treatments and Tests cervical x-ray in chart Future Testing and Treatments Planned f/u with PCP PRN Treatment Goals Patient/Caregiver Goals return to painfree driving Prior Functional Status Baseline Function- ADL's Independent Baseline Function- Mobility Independent Baseline Function- Gait diminished arm swing 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 Son is is [place] Baseline Function- Recreation/Hobbies minimal since went into memory care. Prior to such, enjoyed walking trails and beaches Current Functional Impairments (Reported) Functional Limitations- ADL's essential tremor is starting to imact ADLS, eating, etc PT-OP-C Subjective Start: 06/16/24 16:01 Freq: Status: Active Protocol: Document 06/17/24 15:31 KW (Rec: 06/17/24 16:08 KW [id number]) OP-PT Subjective Patient Comments Patient Comments no concerns Patient Questionnaires Neck Disability Index Neck Disability Index Impairment 40 to 59% Impaired (Score 20- 29) OP-PT Pain Assessment Pain Assessment Grid Paper Pain Assessment Grid Completed Yes Location Bilateral Neck Pain Location Details B upper traps, SCM, scalenes Intensity 2 Scale Used Numeric (0 - 10) Description Aching,Pinching,Sharp,Tender, Tightness,With Movement Frequency Frequent Pain Duration intermittent Radiating Location none Pain Aggravating Factors Changing Position,Activity, Exercise Pain Alleviating Factors Heat,Medication,Massage Other Pain Alleviating Factors Lidocaine patches Patient Stated Pain Goal turn head painfree with driving Home Pain Medication Use Pain Medications Used Yes: NSAIDS Pain Behaviors Pain Behaviors Guarding,Holding Area,Wincing PT-OP-F Manual Assessment Start: 06/16/24 16:01 Freq: Status: Active Protocol: Document 06/17/24 15:31 KW (Rec: 06/17/24 16:08 KW [id number]) Manual Assessments Soft Tissue Assessment Soft Tissue Mobility Assessment significant tenderness at beginning of RX, B UT, SCM, Scalenes, suboccipitals, reduced 50% post Rx Joint Mobility Assessment Joint Mobility Assessment significant stiffness C-spine PA, side glides throughout, elevated ribs, stiffness of B SC/AC joints, significant scapular restriction and stiffness Other Manual Assessments Other Manual Assessments T-spine stiffness PT-OP-H Neuro Start: 06/16/24 16:01 Freq: Status: Active Protocol: Document 06/17/24 15:31 KW (Rec: 06/17/24 16:08 KW [id number]) Sensation Evaluation Gross Sensation Gross Sensation WNL Muscle Tone Tone Assessment 1 Flexor Tone Description Rigidity Manifestations of Tone Intention Tremors Muscle Tone Comments B scap ridigity, scapular dyskinesia Vital Signs Respirations Respiratory Effort Shallow PT-OP-J Posture/Palpation/Skin Start: 06/16/24 16:01 Freq: Status: Active Protocol: Document 06/17/24 15:31 KW (Rec: 06/17/24 16:08 KW [id number]) Posture Evaluation Position Sitting Head/C-Spine Posture Side Bent Right TMJ Posture Lips Together,Teeth Apart T-Spine Posture Increased Kyphosis Thorax Posture Barrel Chested Shoulder Posture (R) Rounded,(L) Forward Scapula Posture (L) Protracted,(R) Protracted Arm Posture (L) Internally Rotated,(R) Internally Rotated Weight Distribution Weight Shifted Right Palpation Assessment Location One Palpation Findings Soft Tissue Tightness,Muscle Guarding Palpation Details B stiffness of tissues: suboccipitals, SCM, Scalenes, pravin-scapular muscles. all improved with breath work PT-OP-L Special Tests Start: 06/16/24 16:01 Freq: Status: Active Protocol: Document 06/17/24 15:31 KW (Rec: 06/17/24 16:08 KW [id number]) Special Tests Cervical Spine Special Tests Spurling's Test Test Results negative Foraminal Compression Test Results negative PT-OP-Q Treatments Start: 06/16/24 16:01 Freq: Status: Active Protocol: Document 06/17/24 15:31 KW (Rec: 06/17/24 16:08 KW [id number]) Therapeutic Exercises Sitting Exercises 2 Sitting Exercise Name seated trunk rotation Side bilateral Comments all with good breath control, lengthen exhale 1 Sitting Exercise Name B scapular elevation/ depression with inhale/exhale. shoulder rolls Side bilateral Reps/Minutes 10 Comments all with good breath control Standing Exercises 2 Standing Exercise Name elena hayes B UE wall slides with controlled ribs/ breathing Side bilateral Equipment Used pillow case Reps/Minutes 5 Comments max cues for breath control 1 Standing Exercise Name corner pec stretch Side bilateral Comments long exhale, lower ribs, gentle lean forward, lead with one foot forward Gait Training Gait Activity 1 Description arm swing and proper UE alignment with gait Comments cues to lengthen inhale 2 count, exhale 3 Manual Therapy Treatment Consent Patient gave verbal consent for manual Yes treatment Soft Tissue Mobilization 1 Mobilization Type Myofascial Release,Strain/ Counterstrain Intensity/Depth Superficial Body Position Hooklying Comments max cues for breathing, relax tension of shoulders and head B UT, SCM, Scalenes, SO Joint Mobilizations 2 Joint scap thoracic Body Position Sidelying Reps/Duration 10 Comments scap mobs in sidelying R and L , protract/retract with rib depression/stabilization PT-OP-T Assessment and Plan Start: 06/16/24 16:01 Freq: Status: Active Protocol: Document 06/17/24 15:31 KW (Rec: 06/17/24 16:08 KW [id number]) Physical Therapy Assessment Rehab Potential Rehabilitation Potential Excellent Evaluation Complexity Number of Personal Factors/Comorbidities 1-2 Number of Body Systems Impaired 1-2 Clinical Presentation at Evaluation Stable Impairments Impairments Functional Activities,Pain, Posture,Soft Tissue Mobility, Tone Other Impairments essential tremor is likely playing into increased shoulder/neck stiffness as he works to stabilize his UE/ tremor Assessment Summary Assessment pleasant 84 yo male presents with Cervical spine pain after aggressive rotation during an exercise class. he responded well to PT with increased R > L cervical rotation. Significant breath holding/ shallow breathing patterns likely contributing to muscle tension. As well as stress/ grief with spouse recently in memory care. Pt became tearful a few times during Rx. Anticipate pt to do very well with PT. Physical Therapy Plan Frequency and Duration Frequency of Treatment 2x/Week Duration of treatment (weeks) 6 Plan of Care Start Date 06/17/24 Plan of Care End Date 08/20/24 Therapeutic Interventions Therapeutic Interventions Home Exercise Program,Joint Mobilizations,Manual Therapy, Neuromuscular Re-education, Patient/Caregiver Education, Self-Care/Home Management,Soft Tissue Mobilization, Therapeutic Activities, Therapeutic Exercises Modalities Hot Packs Next Visit Focus/Plan Next Visit Plan UBE, HEP review and progression, B UE with tubing, ideally cross body patterns, emphasis on good breathing mechanics. ROM, manual therapy
--- NOTE | 2024-06-17 16:12 | PT.OPPOC ---
Physical, Occupational & Speech Therapy At [facility] Current Diagnoses Strain of muscle, fascia and tendon at neck level, subsequent encounter (06/17/24) Visit Care Team Role Provider Type Carlton Monique DO Family Provider Physician Primary Care Provider Specialty: Family Practice Address: [address] [place] [address], [address] Email: [email or web address] Danya Vargas PA-C Attending Provider Advanced Process Improvement Manager Referring Provider Specialty: Medical Wound Care Address: [address] [place] [address], [address] Email: [email or web address] Plan Of Care PT-OP-B Current Condition Start: 06/16/24 16:01 Freq: Status: Active Protocol: Document 06/17/24 15:31 KW (Rec: 06/17/24 16:08 KW [id number]) Current Condition History of Current Condition Onset Date approx 2 weeks Current Complaints pain and stiffness with rotation of head, especially driving Prior Treatments and Tests cervical x-ray in chart Future Testing and Treatments Planned f/u with PCP PRN Treatment Goals Patient/Caregiver Goals return to painfree driving Prior Functional Status Baseline Function- ADL's Independent Baseline Function- Mobility Independent Baseline Function- Gait diminished arm swing 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 Son is is [place] Baseline Function- Recreation/Hobbies minimal since went into memory care. Prior to such, enjoyed walking trails and beaches Current Functional Impairments (Reported) Functional Limitations- ADL's essential tremor is starting to imact ADLS, eating, etc PT-OP-T Assessment and Plan Start: 06/16/24 16:01 Freq: Status: Active Protocol: Document 06/17/24 15:31 KW (Rec: 06/17/24 16:08 KW [id number]) Physical Therapy Assessment Rehab Potential Rehabilitation Potential Excellent Evaluation Complexity Number of Personal Factors/Comorbidities 1-2 Number of Body Systems Impaired 1-2 Clinical Presentation at Evaluation Stable Impairments Impairments Functional Activities,Pain, Posture,Soft Tissue Mobility, Tone Other Impairments essential tremor is likely playing into increased shoulder/neck stiffness as he works to stabilize his UE/ tremor Assessment Summary Assessment pleasant 84 yo male presents with Cervical spine pain after aggressive rotation during an exercise class. he responded well to PT with increased R > L cervical rotation. Significant breath holding/ shallow breathing patterns likely contributing to muscle tension. As well as stress/ grief with spouse recently in memory care. Pt became tearful a few times during Rx. Anticipate pt to do very well with PT. Physical Therapy Plan Frequency and Duration Frequency of Treatment 2x/Week Duration of treatment (weeks) 6 Plan of Care Start Date 06/17/24 Plan of Care End Date 08/20/24 Therapeutic Interventions Therapeutic Interventions Home Exercise Program,Joint Mobilizations,Manual Therapy, Neuromuscular Re-education, Patient/Caregiver Education, Self-Care/Home Management,Soft Tissue Mobilization, Therapeutic Activities, Therapeutic Exercises Modalities Hot Packs Next Visit Focus/Plan Next Visit Plan UBE, HEP review and progression, B UE with tubing, ideally cross body patterns, emphasis on good breathing mechanics. ROM, manual therapy Plan of Care Dates Plan of Care Start Date 06/17/24 Plan of Care End Date 08/20/24 Electronically Signed by: Liliana Martin, SAKSHI 06/17/24 0915 If you are in agreement with this Plan of Care, please return a signed and dated copy. I have reviewed this Plan of Care and certify that the skilled therapy services above are required to meet the patient?s needs. Physician Signature Date Printed Name and Credentials Clinical Instructor Signature Printed Name and Credentials
--- NOTE | 2024-06-21 15:18 | PT.OTN ---
Addendum entered and electronically signed by Liliana Martin, PT 06/23/24 13:53: patient with improved cervical ROM and minimal pain post Rx. Good compliance with HEP Original Note: Current Diagnoses Strain of muscle, fascia and tendon at neck level, subsequent encounter (06/21/24) Physical Therapy Treatment Note PT-OP-A Visit Information Start: 06/16/24 16:01 Freq: Status: Active Protocol: Document 06/21/24 14:33 KW (Rec: 06/21/24 15:18 KW Laptop) Out-Patient Physical Therapy Visit Information Visit Information Visit Type Treatment Note Visit Start Time 14:30 Visit Stop Time 15:15 Visit Number 2 Number of DRUM TESTER Visits 0 Precautions Precautions none PT-OP-B Current Condition Start: 06/16/24 16:01 Freq: Status: Active Protocol: Document 06/17/24 15:31 KW (Rec: 06/17/24 16:08 KW [id number]) Current Condition History of Current Condition Onset Date approx 2 weeks Current Complaints pain and stiffness with rotation of head, especially driving Prior Treatments and Tests cervical x-ray in chart Future Testing and Treatments Planned f/u with PCP PRN Treatment Goals Patient/Caregiver Goals return to painfree driving Prior Functional Status Baseline Function- ADL's Independent Baseline Function- Mobility Independent Baseline Function- Gait diminished arm swing 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 Son is is [place] Baseline Function- Recreation/Hobbies minimal since went into memory care. Prior to such, enjoyed walking trails and beaches Current Functional Impairments (Reported) Functional Limitations- ADL's essential tremor is starting to imact ADLS, eating, etc PT-OP-C Subjective Start: 06/16/24 16:01 Freq: Status: Active Protocol: Document 06/21/24 14:33 KW (Rec: 06/21/24 15:18 KW Laptop) OP-PT Subjective Patient Comments Patient Comments spending 60-90 min at a time at computer getting taxes ready. Patient Reported Progress Same PT-OP-F Manual Assessment Start: 06/16/24 16:01 Freq: Status: Active Protocol: Document 06/17/24 15:31 KW (Rec: 06/17/24 16:08 KW [id number]) Manual Assessments Soft Tissue Assessment Soft Tissue Mobility Assessment significant tenderness at beginning of RX, B UT, SCM, Scalenes, suboccipitals, reduced 50% post Rx Joint Mobility Assessment Joint Mobility Assessment significant stiffness C-spine PA, side glides throughout, elevated ribs, stiffness of B SC/AC joints, significant scapular restriction and stiffness Other Manual Assessments Other Manual Assessments T-spine stiffness PT-OP-H Neuro Start: 06/16/24 16:01 Freq: Status: Active Protocol: Document 06/17/24 15:31 KW (Rec: 06/17/24 16:08 KW [id number]) Sensation Evaluation Gross Sensation Gross Sensation WNL Muscle Tone Tone Assessment 1 Flexor Tone Description Rigidity Manifestations of Tone Intention Tremors Muscle Tone Comments B scap ridigity, scapular dyskinesia Vital Signs Respirations Respiratory Effort Shallow PT-OP-J Posture/Palpation/Skin Start: 06/16/24 16:01 Freq: Status: Active Protocol: Document 06/17/24 15:31 KW (Rec: 06/17/24 16:08 KW [id number]) Posture Evaluation Position Sitting Head/C-Spine Posture Side Bent Right TMJ Posture Lips Together,Teeth Apart T-Spine Posture Increased Kyphosis Thorax Posture Barrel Chested Shoulder Posture (R) Rounded,(L) Forward Scapula Posture (L) Protracted,(R) Protracted Arm Posture (L) Internally Rotated,(R) Internally Rotated Weight Distribution Weight Shifted Right Palpation Assessment Location One Palpation Findings Soft Tissue Tightness,Muscle Guarding Palpation Details B stiffness of tissues: suboccipitals, SCM, Scalenes, pravin-scapular muscles. all improved with breath work PT-OP-L Special Tests Start: 06/16/24 16:01 Freq: Status: Active Protocol: Document 06/17/24 15:31 KW (Rec: 06/17/24 16:08 KW [id number]) Special Tests Cervical Spine Special Tests Spurling's Test Test Results negative Foraminal Compression Test Results negative PT-OP-Q Treatments Start: 06/16/24 16:01 Freq: Status: Active Protocol: Document 06/21/24 14:33 KW (Rec: 06/21/24 15:18 KW Laptop) Cardio Equipment Upper Body Ergometer (UBE) Duration (Minutes) 3 RPM 60 Therapeutic Exercises Sitting Exercises 2 Sitting Exercise Name seated trunk rotation Side bilateral Reps/Minutes 3 each Comments all with good breath control, lengthen exhale 1 Sitting Exercise Name B scapular elevation/ depression with inhale/exhale. shoulder rolls Side bilateral Reps/Minutes 10 Comments all with good breath control Standing Exercises 2 Standing Exercise Name B UE resistance bands, both bent elbow, straight arm Side bilateral Resistance [place] Equipment Used elastic band Reps/Minutes 2 x 10 Comments cues for posture, breathing 1 Standing Exercise Name wall slides, B UE, Side bilateral Resistance towel or pillow case Reps/Minutes 10 Comments cues to look straight ahead, ribs down, full exhale Manual Therapy Treatment Consent Patient gave verbal consent for manual Yes treatment Soft Tissue Mobilization 1 Body Location cervical spine Mobilization Type Myofascial Release,Strain/ Counterstrain Intensity/Depth Superficial Body Position Hooklying Comments max cues for breathing, relax tension of shoulders and head B UT, SCM, SCcalenes, SO Joint Mobilizations 2 Joint scap thoracic Body Position Sidelying Reps/Duration 10 Comments scap mobs in sidelying R and L , protract/retract with rib depression/stabilization Manual Traction Cervical Details general traction suboccipital hold Body Position Supine Reps/Duration 5 x 1 in Comments cues for breathing PT-OP-T Assessment and Plan Start: 06/16/24 16:01 Freq: Status: Active Protocol: Document 06/21/24 14:33 KW (Rec: 06/21/24 15:18 KW Laptop) Physical Therapy Plan Frequency and Duration Frequency of Treatment 2x/Week Duration of treatment (weeks) 6 Plan of Care Start Date 06/17/24 Plan of Care End Date 08/20/24 Therapeutic Interventions Therapeutic Interventions Home Exercise Program,Joint Mobilizations,Manual Therapy, Neuromuscular Re-education, Patient/Caregiver Education, Self-Care/Home Management,Soft Tissue Mobilization, Therapeutic Activities, Therapeutic Exercises Modalities Hot Packs Next Visit Focus/Plan Next Visit Plan UBE, HEP review and progression, B UE with tubing, ideally cross body patterns, emphasis on good breathing mechanics. ROM, manual therapy
--- NOTE | 2024-06-24 13:48 | PT.OTN ---
Current Diagnoses Strain of muscle, fascia and tendon at neck level, subsequent encounter (06/24/24) Physical Therapy Treatment Note PT-OP-A Visit Information Start: 06/16/24 16:01 Freq: Status: Active Protocol: Document 06/24/24 12:53 KW (Rec: 06/24/24 13:48 KW Laptop) Out-Patient Physical Therapy Visit Information Visit Information Visit Type Treatment Note Visit Start Time 13:00 Visit Stop Time 13:40 Visit Number 3 Number of CASSANDRA ARCHITECT Visits 0 Evaluation Information Evaluation Date 06/17/24 Precautions Precautions none PT-OP-B Current Condition Start: 06/16/24 16:01 Freq: Status: Active Protocol: Document 06/17/24 15:31 KW (Rec: 06/17/24 16:08 KW [id number]) Current Condition History of Current Condition Onset Date approx 2 weeks Current Complaints pain and stiffness with rotation of head, especially driving Prior Treatments and Tests cervical x-ray in chart Future Testing and Treatments Planned f/u with PCP PRN Treatment Goals Patient/Caregiver Goals return to painfree driving Prior Functional Status Baseline Function- ADL's Independent Baseline Function- Mobility Independent Baseline Function- Gait diminished arm swing 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 Son is is [place] Baseline Function- Recreation/Hobbies minimal since went into memory care. Prior to such, enjoyed walking trails and beaches Current Functional Impairments (Reported) Functional Limitations- ADL's essential tremor is starting to imact ADLS, eating, etc PT-OP-C Subjective Start: 06/16/24 16:01 Freq: Status: Active Protocol: Document 06/24/24 12:53 KW (Rec: 06/24/24 13:48 KW Laptop) OP-PT Subjective Patient Comments Patient Comments feeling better. pain is down, ROM is better, exercises as going well. Sleeping well PT-OP-F Manual Assessment Start: 06/16/24 16:01 Freq: Status: Active Protocol: Document 06/17/24 15:31 KW (Rec: 06/17/24 16:08 KW [id number]) Manual Assessments Soft Tissue Assessment Soft Tissue Mobility Assessment significant tenderness at beginning of RX, B UT, SCM, Scalenes, suboccipitals, reduced 50% post Rx Joint Mobility Assessment Joint Mobility Assessment significant stiffness C-spine PA, side glides throughout, elevated ribs, stiffness of B SC/AC joints, significant scapular restriction and stiffness Other Manual Assessments Other Manual Assessments T-spine stiffness PT-OP-H Neuro Start: 06/16/24 16:01 Freq: Status: Active Protocol: Document 06/17/24 15:31 KW (Rec: 06/17/24 16:08 KW [id number]) Sensation Evaluation Gross Sensation Gross Sensation WNL Muscle Tone Tone Assessment 1 Flexor Tone Description Rigidity Manifestations of Tone Intention Tremors Muscle Tone Comments B scap ridigity, scapular dyskinesia Vital Signs Respirations Respiratory Effort Shallow PT-OP-J Posture/Palpation/Skin Start: 06/16/24 16:01 Freq: Status: Active Protocol: Document 06/17/24 15:31 KW (Rec: 06/17/24 16:08 KW [id number]) Posture Evaluation Position Sitting Head/C-Spine Posture Side Bent Right TMJ Posture Lips Together,Teeth Apart T-Spine Posture Increased Kyphosis Thorax Posture Barrel Chested Shoulder Posture (R) Rounded,(L) Forward Scapula Posture (L) Protracted,(R) Protracted Arm Posture (L) Internally Rotated,(R) Internally Rotated Weight Distribution Weight Shifted Right Palpation Assessment Location One Palpation Findings Soft Tissue Tightness,Muscle Guarding Palpation Details B stiffness of tissues: suboccipitals, SCM, Scalenes, pravin-scapular muscles. all improved with breath work PT-OP-L Special Tests Start: 06/16/24 16:01 Freq: Status: Active Protocol: Document 06/17/24 15:31 KW (Rec: 06/17/24 16:08 KW [id number]) Special Tests Cervical Spine Special Tests Spurling's Test Test Results negative Foraminal Compression Test Results negative PT-OP-Q Treatments Start: 06/16/24 16:01 Freq: Status: Active Protocol: Document 06/24/24 12:53 KW (Rec: 06/24/24 13:48 KW Laptop) Cardio Equipment Upper Body Ergometer (UBE) Duration (Minutes) 4 RPM 65 Other 2 min forward, 2 min back Therapeutic Exercises Sitting Exercises posterior mediastinum expansion Sitting Exercise Name elbows to knees Comments tactile cues for lateral and posterior costal expansion 2 Sitting Exercise Name seated trunk rotation Side bilateral Reps/Minutes 3 each Comments all with good breath control, lengthen exhale 1 Sitting Exercise Name B scapular elevation/ depression with inhale/exhale. shoulder rolls Side bilateral Reps/Minutes 10 Comments all with good breath control, manual/verbal cues for low trap contraction Standing Exercises ball roll on wall Standing Exercise Name 90 degree FF ball roll on wall Side bilateral Resistance yellow ball Reps/Minutes 30 sec x 2 Comments cues to keep upper trap down 2 Standing Exercise Name B UE resistance bands, both bent elbow, straight arm Side bilateral Resistance solomon green Equipment Used elastic band Reps/Minutes 2 x 10 Comments cues for posture, breathing, speed control 1 Standing Exercise Name wall slides, B UE Side bilateral Resistance towel or pillow case, progressed to foam roller Reps/Minutes 10 Comments cues to look straight ahead, ribs down, full exhale Manual Therapy Treatment Soft Tissue Mobilization 1 Body Location cervical spine Mobilization Type Myofascial Release,Strain/ Counterstrain Intensity/Depth Superficial Body Position Hooklying Comments max cues for breathing, relax tension of shoulders and head B UT, SCM, SCcalenes, SO Joint Mobilizations 2 Joint scap thoracic Body Position Sidelying Reps/Duration 10 Comments scap mobs in sidelying R and L , protract/retract with rib depression/stabilization PT-OP-T Assessment and Plan Start: 06/16/24 16:01 Freq: Status: Active Protocol: Document 06/24/24 12:53 KW (Rec: 06/24/24 13:48 KW Laptop) Physical Therapy Assessment Progress Towards Goals Progress Comments making good gains in both ROM and pain Assessment Summary Assessment noted improved breathing with all exercises, fewer cues needed. left upper extremity fatigues easier than R good compliance with HEP improving ROM and pain Physical Therapy Plan Frequency and Duration Frequency of Treatment 2x/Week Duration of treatment (weeks) 6 Plan of Care Start Date 06/17/24 Plan of Care End Date 08/20/24 Therapeutic Interventions Therapeutic Interventions Home Exercise Program,Joint Mobilizations,Manual Therapy, Neuromuscular Re-education, Patient/Caregiver Education, Self-Care/Home Management,Soft Tissue Mobilization, Therapeutic Activities, Therapeutic Exercises Modalities Hot Packs Next Visit Focus/Plan Next Note Type Treatment Note Next Visit Plan add in sidelying open book thoracic rotation with foam roller, cues for rib alignment , rotate open on exhale
--- NOTE | 2024-06-28 15:22 | PT.OTN ---
Current Diagnoses Strain of muscle, fascia and tendon at neck level, subsequent encounter (06/28/24) Physical Therapy Treatment Note PT-OP-A Visit Information Start: 06/16/24 16:01 Freq: Status: Active Protocol: Document 06/28/24 14:36 KW (Rec: 06/28/24 13:39 KW Laptop) Out-Patient Physical Therapy Visit Information Visit Information Visit Type Treatment Note Visit Start Time 14:30 Visit Stop Time 15:15 Visit Number 4 Number of BONE CRUSHER Visits 0 Evaluation Information Evaluation Date 06/17/24 Precautions Precautions none PT-OP-B Current Condition Start: 06/16/24 16:01 Freq: Status: Active Protocol: Document 06/17/24 15:31 KW (Rec: 06/17/24 16:08 KW [id number]) Current Condition History of Current Condition Onset Date approx 2 weeks Current Complaints pain and stiffness with rotation of head, especially driving Prior Treatments and Tests cervical x-ray in chart Future Testing and Treatments Planned f/u with PCP PRN Treatment Goals Patient/Caregiver Goals return to painfree driving Prior Functional Status Baseline Function- ADL's Independent Baseline Function- Mobility Independent Baseline Function- Gait diminished arm swing 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 Son is is [place] Baseline Function- Recreation/Hobbies minimal since went into memory care. Prior to such, enjoyed walking trails and beaches Current Functional Impairments (Reported) Functional Limitations- ADL's essential tremor is starting to imact ADLS, eating, etc PT-OP-C Subjective Start: 06/16/24 16:01 Freq: Status: Active Protocol: Document 06/28/24 14:36 KW (Rec: 06/28/24 14:16 KW Laptop) OP-PT Subjective Patient Comments Patient Comments has not been compliant with HEP went for a short walk today Patient Reported Progress Improving PT-OP-F Manual Assessment Start: 06/16/24 16:01 Freq: Status: Active Protocol: Document 06/17/24 15:31 KW (Rec: 06/17/24 16:08 KW [id number]) Manual Assessments Soft Tissue Assessment Soft Tissue Mobility Assessment significant tenderness at beginning of RX, B UT, SCM, Scalenes, suboccipitals, reduced 50% post Rx Joint Mobility Assessment Joint Mobility Assessment significant stiffness C-spine PA, side glides throughout, elevated ribs, stiffness of B SC/AC joints, significant scapular restriction and stiffness Other Manual Assessments Other Manual Assessments T-spine stiffness PT-OP-H Neuro Start: 06/16/24 16:01 Freq: Status: Active Protocol: Document 06/17/24 15:31 KW (Rec: 06/17/24 16:08 KW [id number]) Sensation Evaluation Gross Sensation Gross Sensation WNL Muscle Tone Tone Assessment 1 Flexor Tone Description Rigidity Manifestations of Tone Intention Tremors Muscle Tone Comments B scap ridigity, scapular dyskinesia Vital Signs Respirations Respiratory Effort Shallow PT-OP-J Posture/Palpation/Skin Start: 06/16/24 16:01 Freq: Status: Active Protocol: Document 06/17/24 15:31 KW (Rec: 06/17/24 16:08 KW [id number]) Posture Evaluation Position Sitting Head/C-Spine Posture Side Bent Right TMJ Posture Lips Together,Teeth Apart T-Spine Posture Increased Kyphosis Thorax Posture Barrel Chested Shoulder Posture (R) Rounded,(L) Forward Scapula Posture (L) Protracted,(R) Protracted Arm Posture (L) Internally Rotated,(R) Internally Rotated Weight Distribution Weight Shifted Right Palpation Assessment Location One Palpation Findings Soft Tissue Tightness,Muscle Guarding Palpation Details B stiffness of tissues: suboccipitals, SCM, Scalenes, pravin-scapular muscles. all improved with breath work PT-OP-L Special Tests Start: 06/16/24 16:01 Freq: Status: Active Protocol: Document 06/17/24 15:31 KW (Rec: 06/17/24 16:08 KW [id number]) Special Tests Cervical Spine Special Tests Spurling's Test Test Results negative Foraminal Compression Test Results negative PT-OP-Q Treatments Start: 06/16/24 16:01 Freq: Status: Active Protocol: Document 06/28/24 14:36 KW (Rec: 06/28/24 13:39 KW Laptop) Cardio Equipment Upper Body Ergometer (UBE) Duration (Minutes) 6 RPM 65 Other 3 min forward, 3 min back Therapeutic Exercises Sidelying Exercises 1 Sidelying Exercise Name open book with foam roller Side bilateral Equipment Used foam roller for knee to rest on Reps/Minutes 6 Comments cues for breathing and rotation from T-spine Sitting Exercises posterior mediastinum expansion Sitting Exercise Name elbows to knees Comments tactile cues for lateral and posterior costal expansion 2 Sitting Exercise Name seated trunk rotation Side bilateral Reps/Minutes 3 each Comments all with good breath control, lengthen exhale 1 Sitting Exercise Name B scapular elevation/ depression with inhale/exhale. shoulder rolls Side bilateral Reps/Minutes 10 Comments all with good breath control, manual/verbal cues for low trap contraction Standing Exercises 4 Standing Exercise Name doorway pec stretch Side bilateral Reps/Minutes 3 Comments cues for breathing ball roll on wall Standing Exercise Name 90 degree FF ball roll on wall Side bilateral Resistance yellow ball Reps/Minutes 30 sec x 2 Comments cues to keep upper trap down 2 Standing Exercise Name B UE resistance bands, both bent elbow, straight arm Side bilateral Resistance [place] green Equipment Used elastic band Reps/Minutes 2 x 10 Comments cues for posture, breathing, speed control 1 Standing Exercise Name wall slides, B UE Side bilateral Resistance towel or pillow case, progressed to foam roller Reps/Minutes 10 Comments cues to look straight ahead, ribs down, full exhale Manual Therapy Treatment Consent Patient gave verbal consent for manual Yes treatment Soft Tissue Mobilization 1 Body Location cervical spine Mobilization Type Myofascial Release,Strain/ Counterstrain Intensity/Depth Superficial Body Position Hooklying Comments max cues for breathing, relax tension of shoulders and head B UT, SCM, SCcalenes, SO Joint Mobilizations 2 Joint scap thoracic Body Position Sidelying Reps/Duration 10 Comments scap mobs in sidelying R and L , protract/retract with rib depression/stabilization Manual Traction Cervical Details general traction suboccipital hold Body Position Supine Reps/Duration 5 x 1 in Comments cues for breathing PT-OP-T Assessment and Plan Start: 06/16/24 16:01 Freq: Status: Active Protocol: Document 06/28/24 14:36 KW (Rec: 06/28/24 13:39 KW Laptop) Physical Therapy Assessment Rehab Potential Rehabilitation Potential Excellent Progress Towards Goals Progress Comments making good gains in both ROM and pain Physical Therapy Plan Frequency and Duration Frequency of Treatment 2x/Week Duration of treatment (weeks) 6 Plan of Care Start Date 06/17/24 Plan of Care End Date 08/20/24 Therapeutic Interventions Therapeutic Interventions Home Exercise Program,Joint Mobilizations,Manual Therapy, Neuromuscular Re-education, Patient/Caregiver Education, Self-Care/Home Management,Soft Tissue Mobilization, Therapeutic Activities, Therapeutic Exercises Modalities Hot Packs Next Visit Focus/Plan Next Note Type Treatment Note Next Visit Plan progress HEP, encourage compliance.
--- NOTE | 2024-07-01 15:20 | PT.OTN ---
Current Diagnoses Strain of muscle, fascia and tendon at neck level, subsequent encounter (07/01/24) Physical Therapy Treatment Note PT-OP-A Visit Information Start: 06/16/24 16:01 Freq: Status: Active Protocol: Document 07/01/24 15:12 KW (Rec: 07/01/24 15:20 KW Laptop) Out-Patient Physical Therapy Visit Information Visit Information Visit Type Discharge Summary Visit Start Time 14:30 Visit Stop Time 15:15 Visit Number 5 Number of LITHOGRAPHIC ETCHER Visits 0 Evaluation Information Evaluation Date 06/17/24 Precautions Precautions none PT-OP-B Current Condition Start: 06/16/24 16:01 Freq: Status: Active Protocol: Document 06/17/24 15:31 KW (Rec: 06/17/24 16:08 KW [id number]) Current Condition History of Current Condition Onset Date approx 2 weeks Current Complaints pain and stiffness with rotation of head, especially driving Prior Treatments and Tests cervical x-ray in chart Future Testing and Treatments Planned f/u with PCP PRN Treatment Goals Patient/Caregiver Goals return to painfree driving Prior Functional Status Baseline Function- ADL's Independent Baseline Function- Mobility Independent Baseline Function- Gait diminished arm swing 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 Son is is [place] Baseline Function- Recreation/Hobbies minimal since went into memory care. Prior to such, enjoyed walking trails and beaches Current Functional Impairments (Reported) Functional Limitations- ADL's essential tremor is starting to imact ADLS, eating, etc PT-OP-C Subjective Start: 06/16/24 16:01 Freq: Status: Active Protocol: Document 07/01/24 15:12 KW (Rec: 07/01/24 15:20 KW Laptop) OP-PT Subjective Patient Comments Patient Comments has not been compliant with HEP went for a short walk today Patient Reported Progress Improving PT-OP-F Manual Assessment Start: 06/16/24 16:01 Freq: Status: Active Protocol: Document 06/17/24 15:31 KW (Rec: 06/17/24 16:08 KW [id number]) Manual Assessments Soft Tissue Assessment Soft Tissue Mobility Assessment significant tenderness at beginning of RX, B UT, SCM, Scalenes, suboccipitals, reduced 50% post Rx Joint Mobility Assessment Joint Mobility Assessment significant stiffness C-spine PA, side glides throughout, elevated ribs, stiffness of B SC/AC joints, significant scapular restriction and stiffness Other Manual Assessments Other Manual Assessments T-spine stiffness PT-OP-H Neuro Start: 06/16/24 16:01 Freq: Status: Active Protocol: Document 06/17/24 15:31 KW (Rec: 06/17/24 16:08 KW [id number]) Sensation Evaluation Gross Sensation Gross Sensation WNL Muscle Tone Tone Assessment 1 Flexor Tone Description Rigidity Manifestations of Tone Intention Tremors Muscle Tone Comments B scap ridigity, scapular dyskinesia Vital Signs Respirations Respiratory Effort Shallow PT-OP-J Posture/Palpation/Skin Start: 06/16/24 16:01 Freq: Status: Active Protocol: Document 06/17/24 15:31 KW (Rec: 06/17/24 16:08 KW [id number]) Posture Evaluation Position Sitting Head/C-Spine Posture Side Bent Right TMJ Posture Lips Together,Teeth Apart T-Spine Posture Increased Kyphosis Thorax Posture Barrel Chested Shoulder Posture (R) Rounded,(L) Forward Scapula Posture (L) Protracted,(R) Protracted Arm Posture (L) Internally Rotated,(R) Internally Rotated Weight Distribution Weight Shifted Right Palpation Assessment Location One Palpation Findings Soft Tissue Tightness,Muscle Guarding Palpation Details B stiffness of tissues: suboccipitals, SCM, Scalenes, pravin-scapular muscles. all improved with breath work PT-OP-L Special Tests Start: 06/16/24 16:01 Freq: Status: Active Protocol: Document 07/01/24 15:12 KW (Rec: 07/01/24 15:20 KW Laptop) Special Tests Cervical Spine Special Tests Spurling's Test Test Results negative Foraminal Compression Test Results negative PT-OP-Q Treatments Start: 06/16/24 16:01 Freq: Status: Active Protocol: Document 07/01/24 15:12 KW (Rec: 07/01/24 15:20 KW Laptop) Therapeutic Exercises Sidelying Exercises 1 Sidelying Exercise Name open book with foam roller Side bilateral Equipment Used foam roller for knee to rest on Reps/Minutes 6 Comments cues for breathing and rotation from T-spine Sitting Exercises posterior mediastinum expansion Sitting Exercise Name elbows to knees Comments tactile cues for lateral and posterior costal expansion 2 Sitting Exercise Name seated trunk rotation Side bilateral Reps/Minutes 3 each Comments all with good breath control, lengthen exhale 1 Sitting Exercise Name B scapular elevation/ depression with inhale/exhale. shoulder rolls Side bilateral Reps/Minutes 10 Comments all with good breath control, manual/verbal cues for low trap contraction Standing Exercises 4 Standing Exercise Name doorway pec stretch Side bilateral Reps/Minutes 3 Comments cues for breathing ball roll on wall Standing Exercise Name 90 degree FF ball roll on wall Side bilateral Resistance yellow ball Reps/Minutes 30 sec x 2 Comments cues to keep upper trap down 2 Standing Exercise Name B UE resistance bands, both bent elbow, straight arm Side bilateral Resistance [place] green Equipment Used elastic band Reps/Minutes 2 x 10 Comments cues for posture, breathing, speed control 1 Standing Exercise Name wall slides, B UE Side bilateral Resistance towel or pillow case, progressed to foam roller Reps/Minutes 10 Comments cues to look straight ahead, ribs down, full exhale Manual Therapy Treatment Consent Patient gave verbal consent for manual Yes treatment Soft Tissue Mobilization 1 Body Location cervical spine Mobilization Type Myofascial Release,Strain/ Counterstrain Intensity/Depth Superficial Body Position Hooklying Comments max cues for breathing, relax tension of shoulders and head B UT, SCM, SCcalenes, SO Joint Mobilizations 2 Joint scap thoracic Body Position Sidelying Reps/Duration 10 Comments scap mobs in sidelying R and L , protract/retract with rib depression/stabilization Manual Traction Cervical Details general traction suboccipital hold Body Position Supine Reps/Duration 5 x 1 in Comments cues for breathing PT-OP-T Assessment and Plan Start: 06/16/24 16:01 Freq: Status: Active Protocol: Document 07/01/24 15:12 KW (Rec: 07/01/24 15:20 KW Laptop) Physical Therapy Assessment Rehab Potential Rehabilitation Potential Excellent Progress Towards Goals Progress Comments making good gains in both ROM (no pain at end range Cervical rotation R/L) and pain is now zero and patient feels 99% better and feels ready to discharge PT Assessment Summary Assessment excellent compliance with PT visit and HEP. goals met and appropriate for DC from PT Physical Therapy Plan Discharge Physical Therapy Discharge Reasons Goals Met Discharge Comments full cervical/thoracic ROM and no pain
--- NOTE | 2024-07-01 15:20 | PT.OPDS ---
Current Diagnoses Strain of muscle, fascia and tendon at neck level, subsequent encounter (07/01/24) Visit Care Team Role Provider Type Carlton Monique DO Family Provider Physician Primary Care Provider Specialty: Family Practice Address: [address] [place] [address], [facility] Email: [email or web address] Danya Vargas PA-C Attending Provider Advanced Web Interface Developer Referring Provider Specialty: Medical Wound Care Address: [address] [place] [address], [id number] Email: [email or web address] Visit Number Visit Number 5 Discharge Summary PT-OP-B Current Condition Start: 06/16/24 16:01 Freq: Status: Active Protocol: Document 06/17/24 15:31 KW (Rec: 06/17/24 16:08 KW [id number]) Current Condition History of Current Condition Onset Date approx 2 weeks Current Complaints pain and stiffness with rotation of head, especially driving Prior Treatments and Tests cervical x-ray in chart Future Testing and Treatments Planned f/u with PCP PRN Treatment Goals Patient/Caregiver Goals return to painfree driving Prior Functional Status Baseline Function- ADL's Independent Baseline Function- Mobility Independent Baseline Function- Gait diminished arm swing 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 Son is is [place] Baseline Function- Recreation/Hobbies minimal since went into memory care. Prior to such, enjoyed walking trails and beaches Current Functional Impairments (Reported) Functional Limitations- ADL's essential tremor is starting to imact ADLS, eating, etc PT-OP-C Subjective Start: 06/16/24 16:01 Freq: Status: Active Protocol: Document 07/01/24 15:12 KW (Rec: 07/01/24 15:20 KW Laptop) OP-PT Subjective Patient Comments Patient Comments has not been compliant with HEP went for a short walk today Patient Reported Progress Improving PT-OP-F Manual Assessment Start: 06/16/24 16:01 Freq: Status: Active Protocol: Document 06/17/24 15:31 KW (Rec: 06/17/24 16:08 KW [id number]) Manual Assessments Soft Tissue Assessment Soft Tissue Mobility Assessment significant tenderness at beginning of RX, B UT, SCM, Scalenes, suboccipitals, reduced 50% post Rx Joint Mobility Assessment Joint Mobility Assessment significant stiffness C-spine PA, side glides throughout, elevated ribs, stiffness of B SC/AC joints, significant scapular restriction and stiffness Other Manual Assessments Other Manual Assessments T-spine stiffness PT-OP-H Neuro Start: 06/16/24 16:01 Freq: Status: Active Protocol: Document 06/17/24 15:31 KW (Rec: 06/17/24 16:08 KW [id number]) Sensation Evaluation Gross Sensation Gross Sensation WNL Muscle Tone Tone Assessment 1 Flexor Tone Description Rigidity Manifestations of Tone Intention Tremors Muscle Tone Comments B scap ridigity, scapular dyskinesia Vital Signs Respirations Respiratory Effort Shallow PT-OP-J Posture/Palpation/Skin Start: 06/16/24 16:01 Freq: Status: Active Protocol: Document 06/17/24 15:31 KW (Rec: 06/17/24 16:08 KW [id number]) Posture Evaluation Position Sitting Head/C-Spine Posture Side Bent Right TMJ Posture Lips Together,Teeth Apart T-Spine Posture Increased Kyphosis Thorax Posture Barrel Chested Shoulder Posture (R) Rounded,(L) Forward Scapula Posture (L) Protracted,(R) Protracted Arm Posture (L) Internally Rotated,(R) Internally Rotated Weight Distribution Weight Shifted Right Palpation Assessment Location One Palpation Findings Soft Tissue Tightness,Muscle Guarding Palpation Details B stiffness of tissues: suboccipitals, SCM, Scalenes, pravin-scapular muscles. all improved with breath work PT-OP-L Special Tests Start: 06/16/24 16:01 Freq: Status: Active Protocol: Document 07/01/24 15:12 KW (Rec: 07/01/24 15:20 KW Laptop) Special Tests Cervical Spine Special Tests Spurling's Test Test Results negative Foraminal Compression Test Results negative PT-OP-T Assessment and Plan Start: 06/16/24 16:01 Freq: Status: Active Protocol: Document 07/01/24 15:12 KW (Rec: 07/01/24 15:20 KW Laptop) Physical Therapy Assessment Rehab Potential Rehabilitation Potential Excellent Progress Towards Goals Progress Comments making good gains in both ROM (no pain at end range Cervical rotation R/L) and pain is now zero and patient feels 99% better and feels ready to discharge PT Assessment Summary Assessment excellent compliance with PT visit and HEP. goals met and appropriate for DC from PT Physical Therapy Plan Discharge Physical Therapy Discharge Reasons Goals Met Discharge Comments full cervical/thoracic ROM and no pain
== END 2024-07-08 08:59 | disposition home or self-care (01) ==
LOC: PHYS 14:30
PROVIDERS: Family Provider Family Medicine; PCP Family Medicine; Referring Provider Physician Assistant; Visit Provider Physician Assistant
DX: S16.1XXD Strain of muscle, fascia and tendon at neck level, subsequent encounter (principal)
CPT/HCPCS: 97110; 97140; 97161; 97530

== ENCOUNTER → 2024-07-01 15:17 | Outpatient (CLI) | payer MEDICARE, SELFPAY ==
[2024-07-01 16:33] LABS: Prostate Specific Antigen 8.65 ng/mL (0.10-4.00)
== END ==
PROVIDERS: Family Provider Family Medicine; PCP Family Medicine; Referring Provider Urology; Visit Provider Urology
DX: R97.20 Elevated prostate specific antigen [PSA] (principal)
CPT/HCPCS: 36415; 84153

== ENCOUNTER → 2024-07-08 10:43 | Outpatient (CLI) | payer MEDICARE, SELFPAY | LOC: LAB 10:43 | PROVIDERS: Family Provider Family Medicine; PCP Family Medicine; Visit Provider Urology | DX: N40.1 Benign prostatic hyperplasia with lower urinary tract symptoms (principal); N13.8 Other obstructive and reflux uropathy | CPT/HCPCS: 87077; 87086; 87186 ==

== ENCOUNTER → 2024-12-29 14:55 | Outpatient (CLI) | payer MEDICARE, SELFPAY ==
[2024-12-29 16:27] LABS: Prostate Specific Antigen 8.72 ng/mL (0.10-4.00)
== END ==
PROVIDERS: Family Provider Family Medicine; PCP Family Medicine; Referring Provider Urology; Visit Provider Urology
DX: R97.20 Elevated prostate specific antigen [PSA] (principal)
CPT/HCPCS: 36415; 84153

== ENCOUNTER → 2025-01-05 09:59 | Outpatient (CLI) | payer MEDICARE, SELFPAY | PROVIDERS: PCP Family Medicine; Visit Provider Urology | DX: N40.1 Benign prostatic hyperplasia with lower urinary tract symptoms (principal); N13.8 Other obstructive and reflux uropathy | CPT/HCPCS: 87077; 87086; 87147 ==